=== PATIENT | male | born 1980 | race Caucasian/White ===

== ENCOUNTER 2020-10-30 15:33 | Emergency (ER) | payer SELFPAY ==
[~2020-10-30] VITALS: Ht 172.7 cm; Wt 88.5 kg
[2020-10-30 15:33] VITALS: BP_SYST 136
[2020-10-30] MEDS ORDERED: cefTRIAXone 250 MG VIAL IM ONE (16:00)
[2020-10-30] MEDS ORDERED: AZITHROMYCIN 250 MG TABLET PO ONE (16:00)
[2020-10-30] MEDS ORDERED: PENICILLIN G BENZATHINE 1.2 MMU/2 ML SYR IM ONE (16:00)
[2020-10-30] MEDS ORDERED: DOXY100C2 PO (16:02)
[2020-10-30] MEDS ORDERED: LIDOCAINE 1%, 20 ML MDV 20 ML ONE (16:20)
[2020-10-30] MEDS ORDERED: LIDOCAINE 1% 10 MG/ML, 20 ML MDV INJ ONE (16:30)
[2020-10-30 16:42] VITALS: BP_SYST 136
[2020-11-02 01:06] LABS: CHLAMYDIA TRACHOMATIS NAA Negative (Negative)
== END 2020-10-30 16:43 | disposition home or self-care (01) ==
LOC: SED 15:33
DX: R36.9 Urethral discharge, unspecified (principal); F17.210 Nicotine dependence, cigarettes, uncomplicated; Z11.3 Encounter for screening for infections with a predominantly sexual mode of transmission; Z20.2 Contact with and (suspected) exposure to infections with a predominantly sexual mode of transmission
CPT/HCPCS: 36415; 80074; 86592; 86780; 87491; 87591; 96372; 99284; J0561; J0696; J2001; Q0144

== ENCOUNTER 2022-02-02 17:19 | Emergency (ER) | payer SELFPAY ==
[~2022-02-02 17:19] MED LIST: DOXY100C5 PO
--- NOTE | 2022-02-02 19:44 | NUR ---
LEFT WITHOUT BEING SEEN ON PREVIOUS SHIFT
== END 2022-02-02 19:44 | disposition left against medical advice (07) ==
LOC: SED 17:19
DX: N39.0 Urinary tract infection, site not specified (principal); Z53.21 Procedure and treatment not carried out due to patient leaving prior to being seen by health care provider